=== PATIENT | male | born 1940 | race Caucasian/White ===

== ENCOUNTER 2021-03-16 11:24 | Outpatient (CLI) | payer MEDICARE, SELFPAY ==
--- NOTE | ~2021-03-16 | MM_ITS ---
EXAMINATION: MM diagnostic mammo BI HISTORY: Breast enlargement after therapy for prostate cancer TECHNIQUE: Full field digital craniocaudal and mediolateral oblique views of both breasts were obtain ed. CAD analysis was submitted and interpreted. COMPARISON: No prior mammogram is available for comparison at this institution. BREAST PARENCHYMAL COMPOSITION: There are scattered areas of fibroglandular density. FINDINGS: There is benign-appearing fibroglandular tissue in the breasts, left greater than right. No suspicious mass, calcification, or architectural distortion are identified. IMPRESSION: 1. Findings consistent with bilateral gynecomastia, left greater than right. Continued follow-up phys ical examination is recommended. BI-RADS Category 2: Benign finding(s). Reviewed, dictated and finalized at location A. [facility] IMPRESSION: 1. Findings consistent with bilateral gynecomastia, left greater than right. Co ntinued follow-up physical examination is recommended. BI-RADS Category 2: Benign finding(s).
== END 2021-03-16 11:25 | disposition home or self-care (01) ==
LOC: ANHIMG 11:30
PROVIDERS: PCP Family Medicine; Visit Provider Urology
DX: N62 Hypertrophy of breast (principal)
CPT/HCPCS: 77066